=== PATIENT | female | born 1985 | race Caucasian/White ===

== ENCOUNTER → 2023-07-19 | Outpatient (CLI) | payer SELFPAY ==
--- NOTE | 2023-07-19 | ASPS_PTH ---
PATIENT: COLTEN LOPEZ LOC: [facility]#:[id number] AGE/SX: 38/F ROOM: RE07/19/[address]: Dr. Arslan Valverde MD : 1985 BED: DIS: 07/19/2023 SPEC #: [id number] RECD: 07/19/23 16:00 STATUS: ISHA DORCAS #: [id number] JASON: 07/19/23 00:[address]: Arslan Valverde DEPT: CYTOLOGY RECD BY: Delisa Gonzalez ENTERED: 07/20/23 10:36 SP TYPE: ASPIRATION OTHR DR: Dr. Laith Carey, DO Tissues: A - Thyroid gland, NOS B - Thyroid isthmus Procedures: Special Stain Group II Surgery Specimen Level V Cytology Other HEADER OPERATION: Fine needle aspiration right thyroid nodule, isthmus thyroid nodule PRE-OP DIAGNOSIS: Right thyroid nodule TISSUE SUBMITTED: A - Right thyroid nodule x6 slides, B - Thyroid nodule isthmus x6 slides DIAGNOSIS CYTOLOGY A. Right thyroid nodule, fine needle aspiration (smears): Consistent with benign follicular/colloid nodule (Mead Category II). Adequate for evaluation. See comment. B. Thyroid nodule isthmus, fine needle aspiration (smears): Atypical follicular cells of undetermined significance with Hurthle cell features (Mead Category?III). Adequate for evaluation. See comment. SJ:angel 07/20/2023 COMMENT B. Per recommendations and a clinician-approved plan (a call was made to the referring doctor about the recommendation), genomic testing (Afirma) has been submitted. Results will be reported as an addendum and faxed to clinician. Correlation with clinical, radiologic findings and appropriate follow up are necessary. Case has been reviewed in consultation with Dr. Schwarz who concurs with the above diagnosis. IDC:AM CYTOLOGY STUDY Slides are reviewed. CYTOLOGY GROSS A - Received are six smears labeled with the patient's name and designated per the requisition as right thyroid nodule. Submitted for staining. B - Received are six smears labeled with the patient's name and designated per the requisition as thyroid isthmus nodule. Submitted for staining. / angel 07/19/2023 TC:[address] 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 Please see complete report in e-chart or EMR This addendum is added to incorporate an outside pathology consultation report. The case was examined at [facility] (#[id number]) and the following diagnosis was rendered. A. Right thyroid nodule, fine needle aspiration: Benign. Benign appearing follicular cells and colloid. B. Right nodule isthmus, fine needle aspiration: Atypia of undetermined significance. Almost exclusively of oncocytic cells. Please see complete above mentioned consultation report in EMR
== END | disposition home or self-care (01) ==
LOC: LABSPEC 07-20 09:51
PROVIDERS: PCP Family Medicine; Visit Provider Surgery
DX: E04.1 Nontoxic single thyroid nodule (principal)
CPT/HCPCS: 88161; 88307; 88313